=== PATIENT | male | born 1965 | race Caucasian/White ===

== ENCOUNTER 2016-08-10 10:05 | Day surgery (SDC) | payer OTHER ==
[~2016-08-10] VITALS: Ht 157.5 cm; Wt 81.1 kg
[2016-08-10] VITALS (11 sets, daily range): BP systolic 113–154; BP diastolic 69–91; PULSE 82–94; RESP 14–23; Ht 157.5 cm; Wt 81.1 kg
[2016-08-10] MEDS ORDERED: SIMV10TA6 PO (10:45)
[2016-08-10] MEDS ORDERED: LISI-313 PO (10:45)
[2016-08-10] MEDS ORDERED: CIPROFLOXACIN 400 MG in D5W 200 ML IVPB SCH (11:00)
[2016-08-10] MEDS ORDERED: SOD CHLORIDE 0.9% 1,000 ML IV SCH (11:00)
[2016-08-10] MEDS ORDERED: PROPOFOL 20 ML ONE ×2 (11:32→11:52)
[2016-08-10] MEDS ORDERED: FENTAnyl 50 MCG/ML VIAL ONE (11:32)
[2016-08-10] MEDS ORDERED: MIDAZOLAM 1 MG/ML 2 ML INJ ONE (11:32)
[2016-08-10] MEDS ORDERED: ROCURONIUM 50 MG INJ ONE ×2 (11:32→11:52)
[2016-08-10] MEDS ORDERED: POLYMYXIN/BACITRACIN 1L IRRIG ONE (11:52)
[2016-08-10] MEDS ORDERED: SUCCINYLCHOLINE CHLORIDE 100 MG/5 ML SYG IV ONE (11:52)
[2016-08-10] MEDS ORDERED: BUPIVACAINE 0.25% (MPF) 30 ML INJ ONE (11:52)
[2016-08-10] MEDS ORDERED: NEOSTIGMINE 3 MG/3 ML SYRINGE ONE (12:35)
[2016-08-10] MEDS ORDERED: KETOROLAC 30 MG INJ ONE (12:35)
[2016-08-10] MEDS ORDERED: ACETAMINOPHEN 1000MG/100ML IV 100 ML ONE (12:35)
[2016-08-10] MEDS ORDERED: DEXAMETHASONE 4 MG/ML 1 ML INJ ONE (12:35)
[2016-08-10] MEDS ORDERED: METOCLOPRAMIDE 10 MG INJ ONE (12:35)
[2016-08-10] MEDS ORDERED: GLYCOPYRROLATE 0.4 MG INJ ONE (12:35)
[2016-08-10] MEDS ORDERED: ONDANSETRON 4 MG INJ ONE (12:35)
[2016-08-10] MEDS ORDERED: HYDROCODONE/APAP (5/325) TAB PO ONE (13:00)
[2016-08-10] MEDS ORDERED: hydrALAzine 20 MG INJ IV PRN (13:00)
[2016-08-10] MEDS ORDERED: MEPERIDINE 25 MG INJ IV PRN (13:00)
[2016-08-10] MEDS ORDERED: morphine (1 MG/ML) 10ML SYRINGE IV PRN ×3 (13:00)
[2016-08-10] MEDS ORDERED: HYDROmorphONE (0.2 MG/ML) 10ML SYG IV PRN ×3 (13:00)
[2016-08-10] MEDS ORDERED: METOCLOPRAMIDE 10 MG INJ IV PRN (13:00)
[2016-08-10] MEDS ORDERED: ONDANSETRON 4 MG INJ IV PRN (13:00)
[2016-08-10] MEDS ORDERED: DIPHENHYDRAMINE 50 MG INJ IV PRN (13:00)
[2016-08-10] MEDS ORDERED: LABETALOL HCL 20MG INJ IV PRN (13:00)
--- NOTE | 2016-08-10 15:00 | OPR ---
DATE OF OPERATION: 08/10/2016 INDICATION: This is a 42-year-old male with a ventral hernia. He requests surgical repair. Risks, alternatives, benefits and personnel were discussed with the patient. Patient expressed understand ing and consents to the operation. PREOPERATIVE DIAGNOSIS: Ventral hernia. POSTOPERATIVE DIAGNOSIS: Incarcerated ventral hernia. OPERATION PERFORMED: Laparoscopic incarcerated ventral hernia repair with 10 x [address] mesh. SURGEON: Griffin Medina MD SPECIMEN: None. COMPLICATIONS: None. ANESTHESIA: General. PROCEDURE: The patient was taken to the OR and prepped and draped in usual sterile fashion. Surgic al timeout was performed. IV antibiotics were given. Left upper quadrant 5 mm incision is made wit h a 15 blade. Using a 5 mm optical trocar. Optical entry was performed. Pneumoperitoneum was est ablished. Left flank 12 mm optical trocar and left lower quadrant 5 mm optical trocars were placed under direct visualization. Upon initial inspection, there was some incarcerated contents of the he rnia. This was reduced and resected with laparoscopic Harmonic es. The hernia defect was close d with interrupted #1 Prolene using Endoclose and laparoscopic techniques. An underlay mesh was fix ated with SecureStrap with approximately 4 to 5 cm of coverage in all directions. There was good he mostasis. Ports were removed under direct visualization. Skin was closed using skin aimee. Loca l anesthesia was injected. Dry dressings were applied. Dictated By: GRIFFIN MEDINA MD SB/SUDHEER Conf#: [id number] DID#: [id number]
== END 2016-08-10 14:32 | disposition home or self-care (01) ==
LOC: SDS 10:05
PROVIDERS: ATTEND Surgery
DX: K43.6 Other and unspecified ventral hernia with obstruction, without gangrene (principal); I10 Essential (primary) hypertension; E11.9 Type 2 diabetes mellitus without complications; F17.200 Nicotine dependence, unspecified, uncomplicated
CPT/HCPCS: 49653; C1781; J0131; J0330; J0744; J1885; J2250; J2710; J2765; J3010; Z7512; Z7610; J1100; J2405

== ENCOUNTER 2018-03-28 10:18 | Day surgery (SDC) | END 2018-03-28 16:15 | disposition home or self-care (01) ==

== ENCOUNTER 2018-04-05 08:56 | Emergency (ER) | END 2018-04-05 10:46 | disposition home or self-care (01) ==